=== PATIENT | male | born 1930 | race Caucasian/White ===

== ENCOUNTER 2017-05-13 00:26 | Emergency (ER) | payer OTHER, BC ==
[~2017-05-13] VITALS: Ht 188 cm; Wt 102.0 kg
[~2017-05-13 00:26] MED LIST: ACETAMINOPHEN325 M1 PO; ASPIR-LOW81 MG PO; ASPIRIN81 M1 PO; BENTYL20 MG PO; CELEBREX200 MG PO; CIPRO500 MG PO; DOCUSATE SODIU100 MG PO; FINASTERIDE5 MG PO; HYDROMORPHO1 MG/1 ML IV; JANUVIA100 MG PO; LIDODERM 5% P1 PATCH TD; LISINOPRIL5 MG PO; LOVENOX40 MG/0.4 SC; METFORMIN HCL1000 MG PO; MULTI VITAMIN1 EACH PO; NORCO 10/3251 TABLET PO; PERCOCET 5/31 TABLET PO; PLAVIX75 MG PO; POLYETHYLENE GL17 GM PO; PRAVASTATIN SOD40 MG PO; ROCEPHIN1 GM/50 ML IV; SENOKOT S,PE1 TABLET PO; SKELAXIN800 MG PO; TAMSULOSIN HCL0.4 MG PO; TRAMADOL HCL50 MG PO; TYLENOL REGULA325 MG PO; ULTRAM50 MG PO; [UNRECOGNIZED DRUG - REMARK] PO
[2017-05-13 01:10] LABS: EOSINOPHIL (%) 6.2 % (0-5); EOSINOPHIL COUNT 0.4 K/uL (0-0.3); HEMATOCRIT 44.9 % (38.0-50.0); IMMATURE GRANULOCYTE (%) 0.3 % (0.0-0.7); INSTRUMENT ABS NEUTROPHIL CT 4.2 K/uL; LYMPHOCYTE COUNT 1.3 K/uL (1.0-2.8); MCH 31.2 PG (29.0-34.0); MCHC 34.3 G/DL (30.0-36.0); MCV 90.9 FL (86-99); MEAN PLAT.VOLUME 10.4 uM^3 (9.0-12.4); MONOCYTE (%) 7.2 % (3-12); MONOCYTE COUNT 0.5 K/uL (0-0.8); NEUTROPHIL (%) 66.1 % (45-76); NEUTROPHIL COUNT 4.2 K/uL (1.8-6.4); PLATELET COUNT 142 K/uL (156-360); RBC DIS.WIDTH-CV 12.4 % (11.8-14.6); RBC DIS.WIDTH-SD 41.3 % (39-53); RED BLOOD COUNT 4.94 M/uL (4.00-5.50); WHITE BLOOD COUNT 6.4 K/uL (4.1-10.2)
[2017-05-13 01:26] LABS: CHLORIDE 105 mEq/L (99-109); SODIUM 137 mEq/L (136-147)
[2017-05-13 01:28] LABS: GLUCOSE 165 mg/dL (70-99)
[2017-05-13 01:30] LABS: ANION GAP 7 MEQ/L (2-14); TOTAL BILIRUBIN 0.4 mg/dL (0.0-1.0)
[2017-05-13 01:32] LABS: ALKALINE PHOSPHATASE 60 IU/L (3-129); GFR ESTIMATE (CALCULATED) > 59 mL/min/
[2017-05-13 01:33] LABS: UREA NITROGEN (BUN) 19 mg/dL (9-23)
[2017-05-13 01:58] LABS: LIPASE 25 U/L (1.0-51.0)
[2017-05-13] MEDS ORDERED: ZOFRAN4 MG PO (04:11)
[2017-05-13 04:35] VITALS: BP 150/79
== END 2017-05-13 05:01 | disposition home or self-care (01) ==
LOC: EME → EDBD 00:26 → EME 00:26
PROVIDERS: Emergency Medicine
DX: R11.2 Nausea with vomiting, unspecified (principal); R10.13 Epigastric pain; E78.5 Hyperlipidemia, unspecified; I10 Essential (primary) hypertension; E11.9 Type 2 diabetes mellitus without complications; Z79.84 Long term (current) use of oral hypoglycemic drugs; Z86.73 Personal history of transient ischemic attack (TIA), and cerebral infarction without residual deficits; Z85.51 Personal history of malignant neoplasm of bladder; Z87.891 Personal history of nicotine dependence
CPT/HCPCS: 74176; 80053; 83690; 85025; 99281; 99284; J2405; J7120